=== PATIENT | male | born 1940 | race Caucasian/White ===

== ENCOUNTER 2016-11-24 11:36 | Emergency (ER) | payer OTHER ==
[2016-11-24 11:51] VITALS: BP 141/87; RESP 16; TEMP 97.5; O2SAT 95
[2016-11-24] MEDS ORDERED: IBUPROFEN 600 MG TAB PO ONE (11:55)
--- NOTE | 2016-11-24 12:58 | EDPHY ---
H & P Time Seen by Provider: 11/24/16 12:16 HPI/ROS: This patient was playing organized softball shortly prior to arrival and slid into 3rd base catching his ankle and causing an injury with abrupt pain and swelling to the left ankle. He has not tried to bear weight since the incident occurred. He reports worsening of the pain with any movement of his foot. He denies any other associated injuries. He reports "it does not hurt much." ROS: Musculoskeletal: No other injuries Neuro: No numbness or tingling Cardiovascular: No pallor to the affected extremity 5 point ROS is otherwise negative Past Medical/Surgical History: Otherwise healthy Smoking Status: Never smoked Physical Exam: Physical Exam Vital signs are normal. General: Patient appears younger than his stated age. No acute distress Eyes: Pupils equal and react to light. Extraocular motions are intact. Lungs: No respiratory distress. Cardiac: Brisk capillary refill is intact throughout. Pulses are 2+ and symmetric in the affected extremity. Skin: No rash or pallor. There is a superficial abrasion to the medial malleolus of the affected ankle. This is 1 cm in size with no contamination and no active bleeding. Extremities: Atraumatic normal except for left ankle Left ankle exam: Patient has circumferential swelling with tenderness to the lateral aspect of the ankle more than medial. He has limited range of motion due to pain. No bony tenderness to the foot. Neuro: Alert and oriented with no sensorimotor deficits in the affected extremity. Initial differential diagnosis: Ankle fracture, ankle sprain, traumatic hematoma Constitutional: Initial Vital Signs Temperature (C) 36.4 C 11/24/16 11:48 Heart Rate 103 H 11/24/16 11:48 Respiratory Rate 16 11/24/16 11:48 Blood Pressure 141/87 H 11/24/16 11:48 O2 Sat (%) 95 11/24/16 11:48 O2 Delivery Mode Room Air Allergies/Adverse Reactions: No Known Allergies Allergy (Verified 11/24/16 11:51) Home Medications: Medication Instructions Recorded Aspirin 81mg (*) 11/24/16 Flonase Nasal [place] 11/24/16 Hydrocodone/APAP 5/325 [[place] 1 - 2 tab PO Q4PRN PRN #14 tab 11/24/16 5/325 (*)] ZYRTEC 11/24/16 MDM/Departure - MDM Imaging Results: Ankle x-ray: Lateral malleolar fracture with widening of the mortise and displacement of the distal fibula Imaging: I viewed and interpreted images myself Medications Given: Discontinued Medications Ibuprofen (Motrin) 600 mg PO EDNOW ONE Stop: 11/24/16 11:56 Last Admin: 11/24/16 11:59 Dose: 600 mg ED Course/Re-evaluation: Patient's abrasions clean by our nurse He is placed in a Orthoglass posterior and sugar-tong splint by our nurse and tech with my supervision. He is neurovascularly intact post splint application I spoke with Dr. [id number] orthopedic surgeon regarding this patient's ankle injury and Dr. Murray will follow up with patient in his office this week to Plan surgical repair The patient is instructed in the use of crutches and we explained he cannot bear weight on this injured ankle. Discussion: Patient with surgical ankle fracture due to widening of the mortise -unstable but neurovascularly intact without other complications. - Depart Disposition: Home, Routine, Self-Care Clinical Impression: Ankle fracture, lateral malleolus, closed Qualifiers: Encounter type: initial encounter Fracture alignment: displaced Laterality: left Qualified Code(s): S82.62XA - Displaced fracture of lateral malleolus of left fibula, initial encounter for closed fracture Ankle abrasion Qualifiers: Encounter type: initial encounter Laterality: left Qualified Code(s): S90.512A - Abrasion, left ankle, initial encounter Condition: Good Instructions: Ankle Fracture (ED), Crutch Instructions (ED) Additional Instructions: Diagnosis: Ankle fracture 2. Ankle abrasion Plan: Keep the splint on at all times. Elevate the ankle whenever possible No weight-bearing on the injured ankle. Use crutches whenever up and about. Call Dr. Murray is office today to make a follow-up appointment for sometime within the next few days for further evaluation and to schedule surgery. Ibuprofen and Tylenol or Vicodin for pain control as needed. No driving, alcohol or work on Vicodin. Return prior to the follow up with Dr. Murray if he develops unbearable pain, numbness or other concerns. Prescriptions: Hydrocodone/APAP 5/325 [[place] 5/325 (*)] 1 - 2 tab PO Q4PRN PRN #14 tab PRN Reason: Pain Referrals: Geoffrey Lam MD [Primary Care Provider] - As per Instructions Jarek Murray MD [Medical Doctor] - As per Instructions
[2016-11-24 13:53] VITALS: PULSE 94
== END 2016-11-24 13:15 | disposition home or self-care (01) ==
LOC: CED 11:36
PROC: 2W3RX1Z Immobilization of Left Lower Leg using Splint (ICD-10-PCS; principal; 2016-11-24)
DX: S82.62XA Displaced fracture of lateral malleolus of left fibula, initial encounter for closed fracture (principal); Z79.82 Long term (current) use of aspirin; X58.XXXA Exposure to other specified factors, initial encounter; Y99.8 Other external cause status; Y93.64 Activity, baseball
CPT/HCPCS: 73610-PO

== ENCOUNTER → 2017-10-10 | Outpatient (CLI) | payer OTHER | LOC: FCPNEURO 21:00 | PROVIDERS: ATTEND Internal Medicine Sleep Medicine | DX: G47.33 Obstructive sleep apnea (adult) (pediatric) (principal); G47.61 Periodic limb movement disorder ==